=== PATIENT | female | born 1990 | race Caucasian/White ===

== ENCOUNTER 2018-01-27 13:38 | Emergency (ER) | payer MEDICAID, OTHER ==
[~2018-01-27] VITALS: Ht 154.9 cm; Wt 42.2 kg
[2018-01-27 13:53] VITALS: BP 98/66
--- NOTE | 2018-01-27 14:00 | NUR ---
27/F BIB FOR LEFT KNEE PAIN.S/P FALL X 3 DAYS. DENIES LOC. SKIN IS PINK/WARM/DRY, L KNEE SLIGHTLY SWOLLEN; AAOX4 ;AMB WITH ASSISTANCE; LUNGS CLEAR BL. PATIENT STATES PAIN OF 8/10 AT THIS TIME. PATIENT POSITIONED FOR COMFORT; HOB ELEVATED; BEDRAILS UP X2; BED DOWN. ER MADE AWARE OF PT STATUS. Addendum: 01/27/18 at 1415 by [email or web address] ELEVATED L KNEE & LLL AT THIS TIME.
--- NOTE | 2018-01-27 14:14 | NUR ---
X RAY AT BEDSIDE.
--- NOTE | 2018-01-27 14:35 | NUR ---
Patient being evaluated by DR ARCHIBALD at bedside
[2018-01-27] MEDS ORDERED: KETOROLAC 60 MG/2 ML VIAL IM ONE (15:10)
[2018-01-27 15:24] VITALS: BP 101/61
== END 2018-01-27 15:24 | disposition home or self-care (01) ==
LOC: MED 13:38
DX: S80.02XA Contusion of left knee, initial encounter (principal); X58.XXXA Exposure to other specified factors, initial encounter; Y93.89 Activity, other specified; Y92.89 Other specified places as the place of occurrence of the external cause; Y99.8 Other external cause status
CPT/HCPCS: 73562; 96372; 99284; J1885; Q0092; 81002; 81025

== ENCOUNTER 2018-06-02 13:08 | Emergency (ER) | payer SELFPAY ==
[~2018-06-02] VITALS: Ht 154.9 cm; Wt 47.2 kg
[2018-06-02 13:13] VITALS: BP 125/82
--- NOTE | 2018-06-02 13:17 | NUR ---
PT. CAME INTO THE ED DUE TO LAC TO L INDEX, MIDDLE, AND RING FINGER S/P OPENING A BOX YESTERDAY. PT. HAS 3/10 PAIN IN L INDEX, MIDDLE, AND RING FINGER THAT IS DESCRIBED DULL AND NONE RADIATING. LACERATIONS ARE NOT BLEEDING AT THIS TIME. PT. HAS RR EVEN AND UNLABORED. NO SWELLING NOTED TO L HAND. ER MD NOTIFIED. WILL CONTINUE TO MONITOR.
[2018-06-02] MEDS ORDERED: cefTRIAXone 1,000 MG in LIDOCAINE 1% ***ER ONLY *** 2.1 ML IM ONE (13:35)
[2018-06-02] MEDS ORDERED: NEOMYCIN/POLYMYXIN/BACITRACIN 0.9 GM/1 PKT TP ONE (13:35)
[2018-06-02] MEDS ORDERED: IBUPROFEN 600 MG TAB PO ONE (13:35)
[2018-06-02] MEDS ORDERED: LIDOCAINE 2% 1000 MG/50 ML VIAL INJ ONE (13:49)
[2018-06-02] MEDS ORDERED: cefTRIAXone 1,000 MG VIAL ONE (13:49)
[2018-06-02] MEDS ORDERED: LIDOCAINE MPF 1% - 5 mL VIAL 5 ML ONE (14:00)
--- NOTE | 2018-06-02 14:09 | NUR ---
PT. RESTING SITTING IN BED COMFORTABLY, RR EVEN AND UNLABORED. FAMILY MEMBER AT BEDSIDE. WILL CONTINUE TO MONITOR.
[2018-06-02 14:18] VITALS: BP 125/82
--- NOTE | 2018-06-02 14:18 | NUR ---
Patient discharged with v/s stable. Written and verbal after care instructions given and explained. Patient alert, oriented and verbalized understanding of instructions. Ambulatory with steady gait. All questions addressed prior to discharge. ID band removed. Patient advised to follow up with PMD. Rx of AUGMENTIN, AND TRAMADOL given. Patient educated on indication of medication including possible reaction and side effects. Opportunity to ask questions provided and answered.
== END 2018-06-02 14:18 | disposition home or self-care (01) ==
LOC: MED 13:08
DX: S61.211A Laceration without foreign body of left index finger without damage to nail, initial encounter (principal); S61.213A Laceration without foreign body of left middle finger without damage to nail, initial encounter; S61.215A Laceration without foreign body of left ring finger without damage to nail, initial encounter; W26.8XXA Contact with other sharp object(s), not elsewhere classified, initial encounter; Y93.89 Activity, other specified; Y92.89 Other specified places as the place of occurrence of the external cause; Y99.8 Other external cause status
CPT/HCPCS: 12001; 90471; 90715; 96372; 99284; J0696; J2001; 99283

== ENCOUNTER 2019-02-27 12:20 | Emergency (ER) | payer SELFPAY ==
[~2019-02-27] VITALS: Ht 154.9 cm; Wt 48.6 kg
[2019-02-27 12:25] VITALS: BP 100/56
--- NOTE | 2019-02-27 12:37 | NUR ---
PT AMB TO BED 12
--- NOTE | 2019-02-27 12:41 | NUR ---
PATIENT PRESENTS TO ED WITH C/O NASAL / CHEST CONGESTION, COUGH, INTERMITTENT FEVER X 3 DAYS . DENIES V/D; SKIN IS PINK/WARM/DRY; AAOX4 WITH EVEN AND STEADY GAIT; LUNGS CLEAR BL; HR EVEN AND REGULAR; PATIENT STATES PAIN OF 0/10 AT THIS TIME; VSS; PATIENT POSITIONED FOR COMFORT; HOB ELEVATED; BEDRAILS UP X2; BED DOWN. ER MD MADE AWARE OF PT STATUS.
[2019-02-27 13:05] LABS: BASOPHILS % (AUTO) 0.4 % (0.0-2.0); EOSINOPHILS # (AUTO) 0.1 K/uL (0-0.4); EOSINOPHILS % (AUTO) 1.4 % (0.0-4.0); HEMATOCRIT 34.9 % (36-48); HEMOGLOBIN 11.4 g/dL (12.0-16.0); LYMPHOCYTES # (AUTO) 1.5 K/uL (2.5-16.5); LYMPHOCYTES % (AUTO) 18.4 % (20.5-51.1); MEAN CORPUSCULAR HEMOGLOBIN 27 pg (27-31); MEAN CORPUSCULAR HGB CONC 33 g/dL (33-37); MEAN CORPUSCULAR VOLUME 81.9 fL (80-94); MONOCYTES # (AUTO) 0.5 K/uL (0.8-1.0); MONOCYTES % (AUTO) 6.2 % (1.7-9.3); NEUTROPHILS # (AUTO) 5.9 K/uL (1.8-7.7); NEUTROPHILS % (AUTO) 73.6 % (42.2-75.2); PLATELET COUNT (AUTO) 243 K/uL (140-450); RED BLOOD CELL COUNT(AUTO) 4.27 MIL/uL (4.20-5.40); RED CELL DISTRIBUTION WIDTH 13.8 % (11.6-13.7)
[2019-02-27 13:09] LABS: BILIRUBIN,URINE NEGATIVE (NEGATIVE); BLOOD, URINE NEGATIVE (NEGATIVE); COLOR,URINE YELLOW (YELLOW); LEUKOCYTE ESTERASE ,URINE TRACE (NEGATIVE); NITRITE, URINE NEGATIVE (NEGATIVE); PH,URINE 6.5 (5.0-9.0); UGLUCOSE NEGATIVE (NEGATIVE)
[2019-02-27 13:12] LABS: APPEARANCE,URINE SLIGHTLY HAZY (CLEAR)
[2019-02-27 13:15] LABS: ANION GAP 9.9 (8-16); CARBON DIOXIDE 28.4 mmol/L (21-32); CREATININE 0.5 mg/dL (0.6-1.3); POTASSIUM 3.3 mmol/L (3.5-5.1)
[2019-02-27 13:20] LABS: RBC,URINE 0-5 /HPF (0-5); WBC,URINE 0-5 /HPF (0-5)
[2019-02-27 13:21] LABS: ALBUMIN 3.5 g/dL (3.4-5.0); TOTAL BILIRUBIN 0.6 mg/dL (0.0-1.0)
[2019-02-27 13:23] LABS: URINE AMORPHOUS URATE 1+ /HPF (None Seen)
[2019-02-27 14:09] VITALS: BP 108/66
--- NOTE | 2019-02-27 14:09 | NUR ---
Patient discharged with v/s stable. Written and verbal after care instructions given and explained. Patient alert, oriented and verbalized understanding of instructions. Ambulatory with steady gait. All questions addressed prior to discharge. ID band removed. Patient advised to follow up with PMD. Rx of nitrofurantoin given. Patient educated on indication of medication including possible reaction and side effects. Opportunity to ask questions provided and answered.
== END 2019-02-27 14:09 | disposition home or self-care (01) ==
LOC: MED 12:20
DX: O23.42 Unspecified infection of urinary tract in pregnancy, second trimester (principal); O99.512 Diseases of the respiratory system complicating pregnancy, second trimester; J06.9 Acute upper respiratory infection, unspecified; Z3A.16 16 weeks gestation of pregnancy
CPT/HCPCS: 36415; 80053; 81001; 85025; 87086; 87186; 99283

== ENCOUNTER 2019-04-18 10:38 | Emergency (ER) | payer OTHER ==
[~2019-04-18] VITALS: Ht 154.9 cm; Wt 51.4 kg
[2019-04-18 10:39] VITALS: BP 107/63
--- NOTE | 2019-04-18 10:50 | NUR ---
28 y female bib friend c/o intermitent abdominal cramping radiating to oneil legs x today. pain 05/12. pt reported preg 20 weeks. . lmp 11/10/18. denies n/v/d or trauma. denies painful urination but admits to foul smelling urine and vaginal discharge colored white x 1 month. patient states she takes iron pills. reported last bm yesterday: black stool & green. vss at this time. pt aa0x4. bed is down, locked, bed rail x 1, ermd to see pt. med hx: low blood platelet count rx- iron pills
--- NOTE | 2019-04-18 10:51 | NUR ---
pt amb to restroom for urine sample, with steady gait
--- NOTE | 2019-04-18 10:56 | NUR ---
PT AMB TO BED 11
--- NOTE | 2019-04-18 11:01 | NUR ---
DR GONG AT BEDSIDE
--- NOTE | 2019-04-18 11:04 | NUR ---
US AT BEDSIDE
--- NOTE | 2019-04-18 11:07 | NUR ---
CALLED LABOR AND DELIVERY, GAVE REPORT. STATES THEY WILL COME DOWN TO MONITOR PATIENT.
--- NOTE | 2019-04-18 11:10 | NUR ---
LABOR AND DELIVERY NURSE STATES SHE WILL RETURN WHEN US IS FINISHED
--- NOTE | 2019-04-18 11:11 | NUR ---
LAB AT BEDSIDE
--- NOTE | 2019-04-18 11:25 | NUR ---
US FINISHED AT BEDSIDE, LAB ENTERING ROOM
--- NOTE | 2019-04-18 11:32 | NUR ---
LABOR AND DOCTOR ASSISTANT AT BEDSIDE. CONNECTED PT TO MONITOR FOR CONTRACTIONS AND HEART TONE.
--- NOTE | 2019-04-18 11:40 | NUR ---
LABOR AND DELIVERY NURSE RETURNS TO L&D TO MONITOR HER PATIENTS. STATES PT IS STABLE, WILL REMAIN CONNECTED TO MONITOR.
[2019-04-18 11:44] LABS: BASOPHILS % (AUTO) 0.3 % (0.0-2.0); EOSINOPHILS # (AUTO) 0.2 K/uL (0-0.4); EOSINOPHILS % (AUTO) 1.5 % (0.0-4.0); HEMATOCRIT 32.9 % (36-48); HEMOGLOBIN 10.9 g/dL (12.0-16.0); LYMPHOCYTES # (AUTO) 1.4 K/uL (2.5-16.5); LYMPHOCYTES % (AUTO) 13.7 % (20.5-51.1); MEAN CORPUSCULAR HEMOGLOBIN 28 pg (27-31); MEAN CORPUSCULAR HGB CONC 33 g/dL (33-37); MEAN CORPUSCULAR VOLUME 83.3 fL (80-94); MONOCYTES # (AUTO) 0.6 K/uL (0.8-1.0); MONOCYTES % (AUTO) 6.1 % (1.7-9.3); NEUTROPHILS # (AUTO) 7.8 K/uL (1.8-7.7); NEUTROPHILS % (AUTO) 78.4 % (42.2-75.2); PLATELET COUNT (AUTO) 249 K/uL (140-450); RED BLOOD CELL COUNT(AUTO) 3.96 MIL/uL (4.20-5.40); RED CELL DISTRIBUTION WIDTH 14.6 % (11.6-13.7); WHITE BLOOD COUNT (AUTO) 9.9 K/uL (4.8-10.8)
[2019-04-18 12:10] LABS: APPEARANCE,URINE CLOUDY (CLEAR); BILIRUBIN,URINE NEGATIVE (NEGATIVE); BLOOD, URINE 3+ (NEGATIVE); COLOR,URINE YELLOW (YELLOW); LEUKOCYTE ESTERASE ,URINE TRACE (NEGATIVE); NITRITE, URINE NEGATIVE (NEGATIVE); PH,URINE 5.5 (5.0-9.0); UGLUCOSE NEGATIVE (NEGATIVE)
[2019-04-18 12:23] LABS: RBC,URINE TOO NUMEROUS TO COUN /HPF (0-5)
[2019-04-18] MEDS ORDERED: cefTRIAXone 1,000 MG VIAL ONE (13:13)
--- NOTE | 2019-04-18 14:06 | NUR ---
VSS AT THIS TIME. PT AA0X4. PT RESTING IN BED ON PHONE.
[2019-04-18 14:30] VITALS: BP 113/61
--- NOTE | 2019-04-18 14:30 | NUR ---
Patient discharged with v/s stable. Written and verbal after care instructions given and explained. Patient alert, oriented and verbalized understanding of instructions. Ambulatory with steady gait. All questions addressed prior to discharge. ID band removed. Patient advised to follow up with PMD. Rx of CEFPODOXIME PROXETIL given. Patient educated on indication of medication including possible reaction and side effects. Opportunity to ask questions provided and answered.
== END 2019-04-18 14:30 | disposition home or self-care (01) ==
LOC: MED 10:38
DX: O23.42 Unspecified infection of urinary tract in pregnancy, second trimester (principal); Z3A.21 21 weeks gestation of pregnancy
CPT/HCPCS: 36415; 76805; 81001; 81025; 85025; 86900; 86901; 87086; 87186; 96365; 99284; J0696; J7060; Q0092

== ENCOUNTER 2020-01-12 16:47 | Emergency (ER) | payer OTHER ==
[~2020-01-12] VITALS: Ht 154.9 cm; Wt 56.9 kg
[2020-01-12 17:06] VITALS: BP 117/80
--- NOTE | 2020-01-12 17:30 | NUR ---
29 Y/O FEMALE C/O LLQ PAIN AND NAUSEA X 1 MONTH. DENIES VOMITING/DIARRHEA. SHARP 8/10 CONSTANT PAIN. DENIES FEVER. STATES CHANGE IN ODOR OF URINE, STRONGER THAN USUAL. NO BLOOD IN URINE. ABD SOFT, FLAT, NONTENDER TO PALP. 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 VSS
--- NOTE | 2020-01-12 17:33 | NUR ---
PT AMBULATED TO RESTROOM
--- NOTE | 2020-01-12 18:30 | NUR ---
SITTING IN BED AWAKE AND ALERT X 1 SIDE RAIL RAISED, BED LOCKED AND IN LOW POSITION. WILL CONTINUE TO MONITOR
[2020-01-12 18:34] LABS: APPEARANCE,URINE CLEAR (CLEAR); BILIRUBIN,URINE NEGATIVE (NEGATIVE); BLOOD, URINE NEGATIVE (NEGATIVE); COLOR,URINE YELLOW (YELLOW); LEUKOCYTE ESTERASE ,URINE NEGATIVE (NEGATIVE); NITRITE, URINE POSITIVE (NEGATIVE); UGLUCOSE NEGATIVE (NEGATIVE)
[2020-01-12 18:36] LABS: BASOPHILS % (AUTO) 0.5 % (0.0-2.0); EOSINOPHILS # (AUTO) 0.2 K/uL (0-0.4); HEMOGLOBIN 12.4 g/dL (12.0-16.0); LYMPHOCYTES # (AUTO) 1.8 K/uL (2.5-16.5); LYMPHOCYTES % (AUTO) 32.9 % (20.5-51.1); MEAN CORPUSCULAR HEMOGLOBIN 26 pg (27-31); MEAN CORPUSCULAR HGB CONC 32 g/dL (33-37); MEAN CORPUSCULAR VOLUME 81.8 fL (80-94); MONOCYTES # (AUTO) 0.5 K/uL (0.8-1.0); MONOCYTES % (AUTO) 8.5 % (1.7-9.3); NEUTROPHILS % (AUTO) 55.1 % (42.2-75.2); PLATELET COUNT (AUTO) 233 K/uL (140-450); RED BLOOD CELL COUNT(AUTO) 4.77 MIL/uL (4.20-5.40); RED CELL DISTRIBUTION WIDTH 15.6 % (11.6-13.7); WHITE BLOOD COUNT (AUTO) 5.4 K/uL (4.8-10.8)
[2020-01-12 18:52] LABS: ALBUMIN 4.5 g/dL (3.4-5.0); ANION GAP 9.5 (8-16); CREATININE 0.8 mg/dL (0.6-1.3); POTASSIUM 3.5 mmol/L (3.5-5.1); TOTAL BILIRUBIN 0.8 mg/dL (0.0-1.0)
[2020-01-12 19:04] LABS: RBC,URINE 0-5 /HPF (0-5)
[2020-01-12 19:05] LABS: WBC,URINE 0-5 /HPF (0-5)
--- NOTE | 2020-01-12 19:05 | NUR ---
REPORT GIVEN TO FRANKIE GARCIA. TRANSFER OF CARE AT THIS TIME
[2020-01-12 19:17] VITALS: BP 116/72
--- NOTE | 2020-01-12 19:17 | NUR ---
Patient discharged with v/s stable. She states relief from pain. Written and verbal after care instructions given and explained. Provided with copy of labs and immaging. Patient verbalized understanding. Ambulatory with steady gait. All questions addressed prior to discharge. Advised to follow up with PMD.
== END 2020-01-12 19:17 | disposition home or self-care (01) ==
LOC: MED 16:47
DX: R10.32 Left lower quadrant pain (principal); R35.0 Frequency of micturition
CPT/HCPCS: 36415; 76705; 76830; 80053; 81001; 81025; 83690; 85025; 87086; 87186; 93976; 99285; Q0092; 81002

== ENCOUNTER 2023-11-08 01:50 | Emergency (ER) | payer OTHER ==
[~2023-11-08] VITALS: Ht 154.9 cm; Wt 54.4 kg
[2023-11-08 01:52] VITALS: BP 117/79; PULSE 107; RESP 20; TEMP 98; O2SAT 98
[2023-11-08 02:27] LABS: BASOPHILS % (AUTO) 0.4 % (0.0-2.0); EOSINOPHILS # (AUTO) 0.2 K/uL (0-0.4); EOSINOPHILS % (AUTO) 2.1 % (0.0-4.0); HEMATOCRIT 38.5 % (36-48); HEMOGLOBIN 12.7 g/dL (12.0-16.0); LYMPHOCYTES # (AUTO) 3.7 K/uL (2.5-16.5); LYMPHOCYTES % (AUTO) 42.7 % (20.5-51.1); MEAN CORPUSCULAR HEMOGLOBIN 28 pg (27-31); MEAN CORPUSCULAR HGB CONC 33 g/dL (33-37); MEAN CORPUSCULAR VOLUME 83.6 fL (80-94); MONOCYTES # (AUTO) 0.6 K/uL (0.8-1.0); MONOCYTES % (AUTO) 6.5 % (1.7-9.3); NEUTROPHILS # (AUTO) 4.2 K/uL (1.8-7.7); NEUTROPHILS % (AUTO) 48.3 % (42.2-75.2); PLATELET COUNT (AUTO) 303 K/uL (140-450); RED CELL DISTRIBUTION WIDTH 13.6 % (11.6-13.7); WHITE BLOOD COUNT (AUTO) 8.7 K/uL (4.8-10.8)
[2023-11-08 02:41] LABS: ANION GAP 11.2 (8-16); CALCIUM 9.2 mg/dL (8.5-10.1); CARBON DIOXIDE 30.1 mmol/L (21-32); CREATININE 0.7 mg/dL (0.6-1.3); POTASSIUM 3.3 mmol/L (3.5-5.1)
[2023-11-08 02:43] LABS: ALBUMIN 4.2 g/dL (3.4-5.0); BILIRUBIN,DIRECT 0.2 mg/dL (0.0-0.3); TOTAL BILIRUBIN 0.8 mg/dL (0.0-1.0); TOTAL PROTEIN, SERUM 8.2 g/dL (6.4-8.2)
[2023-11-08 04:07] LABS: APPEARANCE,URINE CLEAR (CLEAR); BILIRUBIN,URINE NEGATIVE (NEGATIVE); BLOOD, URINE NEGATIVE (NEGATIVE); COLOR,URINE YELLOW (YELLOW); LEUKOCYTE ESTERASE ,URINE NEGATIVE (NEGATIVE); NITRITE, URINE POSITIVE (NEGATIVE); PROTEIN,URINE TRACE (NEGATIVE); UGLUCOSE NEGATIVE (NEGATIVE)
[2023-11-08 04:31] LABS: AMPHETAMINE, URINE NEGATIVE ng/ml (NEG <=1000); BARBITURATE, URINE NEGATIVE ng/ml (NEG <=200); BENZODIAZEPINE, URINE NEGATIVE ng/mL (NEG <=200); CANNABINOID, URINE NEGATIVE ng/mL (NEG <=50); COCAINE, URINE NEGATIVE ng/mL (NEG <=300); OPIATE, URINE NEGATIVE ng/mL (NEG <=2000); PHENCYCLIDINE SCREEN,URINE NEGATIVE ng/mL (NEG <=25)
[2023-11-08 04:32] LABS: BACTERIA,URINE 3+ /HPF (None Seen); HYALINE CASTS, URINE 0-10 /LPF (None Seen); MUCUS,URINE 1+ /LPF (None Seen); RBC,URINE 0-5 /HPF (0-5); SQUAMOUS EPITHELIAL CELL,UR 50-80 /LPF (0-3 (FEW)); TRICHOMONAS,URINE None Seen /HPF (None Seen); WBC,URINE 0-5 /HPF (0-5); YEAST,URINE None Seen /HPF (None Seen)
[2023-11-08] MEDS ORDERED: cefTRIAXone 1,000 MG VIAL ONE (05:26)
[2023-11-08] MEDS ORDERED: NACL 0.9% 1,500 ML IV ONE (05:30)
[2023-11-08] MEDS ORDERED: ACETAMINOPHEN EXTRA STRENGTH 500 MG TAB PO ONE (06:20)
[2023-11-08 06:22] LABS: LACTIC ACID 1.6 mmol/L (0.4-2.0)
[2023-11-08 07:26] LABS: FLU A ANTIGEN negative (NEGATIVE); FLU B ANTIGEN NEGATIVE (NEGATIVE)
[2023-11-08] MEDS ORDERED: CIPR500T4 PO (07:39)
[2023-11-08] MEDS ORDERED: ONDA-188 SL (07:39)
[2023-11-08 07:45] VITALS: BP 114/75; PULSE 118; RESP 22; TEMP 98.1; O2SAT 98
== END 2023-11-08 07:45 | disposition home or self-care (01) ==
LOC: MED 01:50
DX: N39.0 Urinary tract infection, site not specified (principal); Z20.822 Contact with and (suspected) exposure to COVID-19; Z79.899 Other long term (current) drug therapy
CPT/HCPCS: 36415; 70450; 80048; 80076; 80305; 81001; 82150; 83605; 83690; 85025; 87040; 87086; 87426; 87804; 96365; 99285; J0696; J7030

== ENCOUNTER 2024-01-01 00:55 | Emergency (ER) | payer OTHER ==
[~2024-01-01] VITALS: Ht 154.9 cm; Wt 54.4 kg
[~2024-01-01 00:55] MED LIST: CIPR500T4 PO; ONDA-188 SL
[2024-01-01 01:00] VITALS: BP 104/68; PULSE 80; RESP 17; TEMP 97.9; O2SAT 100
[2024-01-01] MEDS ORDERED: ESOM40EC PO (02:18)
== END 2024-01-01 02:20 | disposition home or self-care (01) ==
LOC: MED 00:55
DX: R07.2 Precordial pain (principal); K21.9 Gastro-esophageal reflux disease without esophagitis; Z79.899 Other long term (current) drug therapy
CPT/HCPCS: 93005; 99283

== ENCOUNTER 2024-06-17 22:53 | Emergency (ER) | payer OTHER ==
[~2024-06-17] VITALS: Ht 154.9 cm; Wt 40.8 kg
[~2024-06-17 22:53] MED LIST changes: +ESOM40EC PO
[2024-06-17 22:56] VITALS: BP 108/66; PULSE 79; RESP 16; TEMP 98.4; O2SAT 100
[2024-06-17 23:34] VITALS: O2SAT 100
[2024-06-18 00:39] VITALS: BP 108/66; PULSE 79; RESP 16; TEMP 98.4; O2SAT 100
== END 2024-06-18 00:40 | disposition home or self-care (01) ==
LOC: MED 22:53
DX: R59.0 Localized enlarged lymph nodes (principal); Z79.899 Other long term (current) drug therapy
CPT/HCPCS: 93005; 99283